=== PATIENT | female | born 1960 | race African-American/Black ===

== ENCOUNTER 2018-03-07 15:12 | Observation (INO) ==
[2018-03-07] MEDS ORDERED: tiZANidine 4 MG TABLET PO PRN (18:45)
[2018-03-07] MEDS ORDERED: Polyethylene Glycol 3350 255 GM POWDER PO ONE (18:48)
[2018-03-07] MEDS ORDERED: Ondansetron 4 MG/2 ML VIAL IVP PRN (18:49)
[2018-03-07] MEDS ORDERED: Naloxone 0.4 MG/ML INJ IVP PRN (18:50)
[2018-03-07] MEDS ORDERED: Acetaminophen 325 MG TABLET PO PRN (18:50)
--- NOTE | 2018-03-07 19:18 | Internal Med History&Physical ---
<MairaDarío - Last Filed: 03/07/18 20:03> Date of Encounter: 03/07/18 Time of Encounter: 18:00 Internal Medicine - H&P: HPI Chief complaint: Syncope w/Fall Admitted From: Intrahospital Transfer Plans for Post Hospital Care: Home History of present illness: Ms. Kim is a 58 year old female w/PMH of arthritis, HLD, HTN, osteoporosis, previous PA in 2010 with no stents, history of chronic bronchitis, and carpal tunnel of right wrist presents from [place] [facility] w/CC of fall today w/syncope. Pt. reports hitting her right cheek. Patient denies history of syncope. Patient reports history of chronic pain for which she has been taking OTC Aleve. No alleviating or aggravating factors for syncope. On admission, patient found to have creatinine of 2.39 and GFR of 25. Patient reports history of CK D but these are her lowest numbers. Patient also found to have positive fecal Hemoccult with Hgb of 10.5 a [place] and 10.0 on repeat at [facility] several hours later. She denies visible blood in stool or black stool. Patient denies recent illness, fever, chills, nausea, vomiting, changes in vision, headache, unusual bleeding, chest pain, shortness of breath, cough, chest congestion, abdominal pain, diarrhea, constipation, numbness, or tingling. Past Med Surg Social Fam HX - Past Medical History Source: patient, old records reviewed, obtained from family Medical history: arthritis, hyperlipidemia, hypertension, osteoporosis, other ( Chronic bronchitis, Carpal tunnel of the right wrist) Psychiatric history: anxiety, depression - Past Surgical History Additional surgical history: ECTOPIC,BILATERAL TUBAL LIGATION, LT SHOULDER SURG - Social History Smoking Status: Current every day smoker Packs per day: 1/2 PPD Smokeless Tobacco Status: No Alcohol use: none Drug use: none Current living situation: Home Activity Level: Independent ambulation Recent Out of Country Travel Within the Last 8 Weeks: No Exposure or Possible Exposure to Illness During Travel: No - Family History Father Family Member Ethnicity: Non- Living Status: Age at : 67 Cause of : PA Hx Family Cardiac Disorders: Yes (PA, CAD) Hx Family Endocrine Disorder: Yes (DM) Hx Family Psychosocial Disorders: Yes (Alcoholic) Mother Family Member Ethnicity: Non- Living Status: Age at : 81 Cause of : Colon cancer Hx Family Cardiac Disorders: Yes (PA, CAD) Hx Family Cancer: Yes (Colon) Brother Family Member Ethnicity: Non- Living Status: Age at : 67 Cause of : Lung cancer Hx Family Cancer: Yes (Lung) Sister Family Member Ethnicity: Non- Living Status: Still Living Hx Family Cardiac Disorders: Yes (PA, CAD, HTN, HLD) Hx Family Respiratory Disorders: Yes (COPD) Hx Family Cancer: Yes (Breast) Hx Family Genitourinary Disorders: Yes (CKD) Hx Family Endocrine Disorder: Yes (DM) Internal Medicine - H&P: Meds Gabapentin [Neurontin] 600 mg PO TID 12/25/15 [History] Alprazolam [Alprazolam Xr] 0.5 mg PO QID PRN 03/07/18 [History] Atorvastatin [Lipitor] 10 mg PO HS 03/07/18 [History] BuPROPion [Wellbutrin] 100 mg PO DAILY 03/07/18 [History] DULoxetine [Cymbalta] 20 mg PO DAILY 03/07/18 [History] Fenofibrate Nanocrystallized [Triglide] 160 mg PO DAILY 03/07/18 [History] Losartan Potassium [Cozaar] 50 mg PO DAILY 03/07/18 [History] Ranitidine HCl [Acid Injection Molding Engineer] 150 mg PO BID 03/07/18 [History] Tizanidine HCl [Zanaflex] 4 mg PO TID PRN 03/07/18 [History] Verapamil [Isoptin] 120 mg PO DAILY 03/07/18 [History] 3 Allergy/AdvReac Type Severity Reaction Status Date / Time MAYRA Inhibitors Allergy Cough Verified 12/05/16 09:17 ezetimibe [From Zetia] Allergy See Verified 12/05/16 09:17 Comments lamotrigine [From Lamictal] Allergy Rash Verified 12/05/16 09:17 lisinopril Allergy See Verified 12/05/16 09:17 Comments metoprolol Allergy Irritable Verified 12/05/16 09:17 pravastatin Allergy See Verified 12/05/16 09:17 Comments topiramate [From Topamax] Allergy See Verified 12/05/16 09:17 Comments All Systems PM: A 10-system review of systems was performed and is negative for pertinent findings except as documented above in the HPI. - Constitutional Constitutional: as per HPI, no chills, no fever(s), no night sweats - EENT Eyes: no change in vision, no discharge, no pain, no photophobia Ears: no ear discharge, no ear pain, no tinnitus Nose, mouth and throat: no dysphagia, no nasal discharge, no neck pain, no sore throat - Breasts Breasts: as per HPI - Cardiovascular Cardiovascular ROS IM: as per HPI, lightheadedness, syncope, no chest pain, no diaphoresis, no dyspnea, no palpitations - Respiratory Respiratory: as per HPI, no cough, no dyspnea, no wheezing, no excessive phlegm production - Gastrointestinal Gastrointestinal: as per HPI, no abdominal pain, no diarrhea, no hematemesis, no hematochezia, no melena, no nausea, no vomiting - Genitourinary Genitourinary: no change in urinary stream, no dysuria, no flank pain, no hematuria Menstruation: as per HPI - Musculoskeletal Musculoskeletal ROS IM: no numbness, no tingling - Integumentary Integumentary IM: no rash, no unusual bruising - Neurological Neurological ROS: as per HPI, dizziness, no confusion, no convulsions, no focal weakness, no numbness, no tingling, no tremor(s) - Psychiatric Psychiatric: as per HPI, anxiety, depression - Endocrine Endocrine IM: as per HPI - Hematologic/Lymphatic Hematologic/Lymphatic: no easy bruising - Allergic/Immunologic Allergic/Immunologic: as per HPI - Constitutional Vitals: Temp Pulse Resp BP Pulse Ox 98.2 F 58 17 116/79 96 03/07/18 17:05 03/07/18 17:05 03/07/18 17:05 03/07/18 17:05 03/07/18 17:05 General appearance: Present: cooperative, A&O X 3, pleasant, no acute distress, obese, answers questions appropriately - Head Head exam: Present: atraumatic, normocephalic - Eye Eye exam: Present: PERRL, conjuntiva pink, sclera anicteric Pupils: Present: PERRL - ENT ENT exam: Present: normal exam - Neck Neck exam general surgery: Present: normal inspection, supple, trachea midline. Absent: lymphadenopathy - Respiratory Respiratory exam: Present: CTAB. Absent: accessory muscle use, rales, rhonchi, wheezes - Cardiovascular Cardiovascular exam: Present: RRR, +S1, +S2. Absent: diastolic murmur, gallop, rubs, systolic murmur - GI/Abdominal GI/Abdominal exam: Present: normal bowel sounds, soft, no peritoneal signs. Absent: distended, tenderness - Rectal Rectal exam: Present: deferred - Additional comments: exam deferred. - Extremities Exam Extremities exam: Present: warm, radial pulses palpable and symmetrical. Absent : calf tenderness, cyanotic, pedal edema - Back Exam Back exam: Present: normal inspection - Neurological Exam Neurological exam: Present: alert, CN II-XII intact, oriented X3, no focal deficits. Absent: pronater drift, facial droop, speech deficit - Psychiatric Psychiatric exam: Present: normal affect, normal mood - Skin Skin exam: Present: dry, intact Internal Med - H&P Results - Labs CBC & Chem 7: 03/07/18 19:19 03/07/18 19:19 Labs: Short CBC 03/07/18 Range/Units 18:10 Hgb 10.0 L (11.5-15.4) g/dL Hct 31.9 L (35.3-44.9) % - Diagnostic Studies CT scan - abdomen Additional comments: EXAMINATION: CT OF THE ABDOMEN AND PELVIS WITHOUT CONTRAST 03/07/2018 2:07 pm TECHNIQUE: CT of the abdomen and pelvis was performed without the administration of intravenous contrast. Oral contrast was administered. Multiplanar reformatted images are provided for review. Dose modulation, iterative reconstruction, and/or weight based adjustment of the mA/kV was utilized to reduce the radiation dose to as low as reasonably achievable. COMPARISON: None. HISTORY: ORDERING SYSTEM PROVIDED HISTORY: abd pain FINDINGS: Lower Chest: Linear scarring/atelectasis within the lingula. No pleural effusion or pneumothorax. Heart is borderline prominent without pericardial fluid collection. Organs: The liver, pancreas, and spleen are grossly within normal limits. No evidence for intrahepatic or extrahepatic biliary ductal dilatation. Status post cholecystectomy. GI/Bowel: There is no evidence for bowel obstruction or inflammation. No free intraperitoneal air or fluid. Small bowel loops are normal in caliber. No evidence for hiatal hernia. Appendix is unremarkable. Pelvis: No evidence for free fluid. Peritoneum/Retroperitoneum: Adrenal glands are normal in size and configuration. The kidneys are normal in size without definite nephrolithiasis or hydronephrosis. The ureters run a nonobstructed course to a normal-appearing urinary bladder. Vasculature: The aorta is normal in caliber. No definite lymphadenopathy identified. Bones/Soft Tissues: No evidence for acute fracture or dislocation. No lytic or blastic lesions. Multilevel facet arthropathy within the lower lumbar spine and lumbosacral junction. CT/CT abd pelvis wo iv oral only IMPRESSION: No evidence for acute intra-abdominal or intrapelvic pathology. No bowel obstruction or inflammation. No evidence for nephrolithiasis or urinary obstruction. D/ / Dickson Lowe MD / Dickson Lowe MD Interpreting Provider: Dickson Lowe MD Chest x-ray Additional comments: EXAMINATION: SINGLE XRAY VIEW OF THE CHEST 03/07/2018 11:51 am COMPARISON: 09/06/2014 HISTORY: ORDERING SYSTEM PROVIDED HISTORY: syncope Initial encounter FINDINGS: No focal consolidation, pleural effusion or pneumothorax. The cardiomediastinal silhouette is stable. No overt pulmonary edema. The osseous structures are stable. XR/XR chest 1V portable IMPRESSION: Stable exam. No acute cardiopulmonary findings. D/ / Franca Huynh MD / Franca Huynh MD Interpreting Provider: Franca Huynh MD - Assessment and plan (1) Syncope and collapse Current Visit: Yes Status: Acute Assessment and plan: Acute syncope and collapse today, most likely from dehydration versus hypotension. Pt. reports hitting her right cheek in the fall. Denies hx of falls or syncope previously. CT of the head/brain ordered to assess for intracranial bleeding. Pt. shows no neuro deficits or changes. Pt. received 0.9 IV fluids at [place] ED and we will continue @ 80 mLs/HR d/t hypotension and current renal dysfunction. Monitor I&O and daily weight. Neuro assessments Q2HR. Falls/safety precautions and up with assist only. Will hold pts. HTN medications and add Hydralazine IVP 10 mg Q6HR PRN w/parameters if pt. becomes hypertensive. Pt. discussed w/Dr. Scott who agrees w/plan of care. Pt. is high risk for further morbidity d/t syncope, hypotension, dehydration requiring IV fluids, JAGRUTI, current GI bleed most likely from NSAIDS, hx, and risk factors. Observation. (2) GI bleed Current Visit: Yes Status: Acute Assessment and plan: Acute GI bleed. Pt reports hx of osteoporosis and states she has been taking OTC Aleve for all-over pain. Pt. denies hx of ulcers, GI bleeding, or previous colonoscopy. Positive fecal hemoccult. CT of the abdomen/pelvis shows no evidence for acute intra-abdominal or intrapelvic pathology. No bowel obstruction or inflammation. No evidence of nephrolithiasis or urinary obstruction. Hgb 10.5 this morning on admission at [facility] and 10.0 several hours later @ [facility]. IVP Protonix 40 mg BID. Clear liquid diet until midnight, then NPO. Monitor I&O and pt. for bleeding. Bilateral SCDs on LEs for DVT prophylaxis. GI consult ordered and discussed w/Dr. Coreas and I appreciate the consult and recommendations as always. H/H Q6HR. Qualifiers: GI bleed type/associated pathology: unspecified gastrointestinal hemorrhage type Qualified Code(s): K92.2 - Gastrointestinal hemorrhage, unspecified (3) JAGRUTI (acute kidney injury) Current Visit: Yes Status: Acute Assessment and plan: Acute on chronic kidney failure w/creatinine of 2.39 and GFR of 25 on admission. Pt. has hx of CKD but these are her worst numbers on record. JAGRUTI most likely d/t dehydration. Pt. reports not drinking very much over the past several days and had syncopal episode today. Pt. received IV fluids @ [place] [facility]. Repeat Chem ordered to assess for renal function improvement. Nephrology consult ordered and discussed w/Dr. Olivares who will see pt. I appreciate the consult and recommendations as always. Monitor I&O and daily weight. Avoid nephrotoxins. 0.9 NS IV fluids to continue @ 80 mLs/HR. Monitor pt. and f/u labs. (4) Hypotension Current Visit: Yes Status: Acute Assessment and plan: Acute hypotension today when pt. was at [facility]. Pt. reports Systolic BP in 50s. Was given IV fluids which improved BP. 116/79 @ 17:05. Will hold pts. BP medications d/t hypotension and add Hydralazine 10 mg Q6HR PRN w/ parameters if pt. becomes hypertensive. 0.9 NS IV fluids @ 80 mLs/HR for hypotension as well as for renal function improvement. VS Q4HR. Pt. to be monitored closely. Qualifiers: Hypotension type: hypotension due to hypovolemia Qualified Code(s): I95.89 - Other hypotension; E86.1 - Hypovolemia (5) HLD (hyperlipidemia) Current Visit: Yes Status: Chronic Assessment and plan: Hx of chronic HLD. Lipid panel in a.m. labs. Continue pts. PO Lipitor. Qualifiers: Hyperlipidemia type: pure hypercholesterolemia Qualified Code(s): E78.00 - Pure hypercholesterolemia, unspecified; E78.0 - Pure hypercholesterolemia (6) HTN (hypertension) Current Visit: Yes Status: Chronic Assessment and plan: Hx of chronic HTN. Pt. hypotensive today. Will hold pts. PO HTN medications and add IVP Hydralazine 10 mg Q6HR PRN w/parameters if pt. becomes hypertensive. Qualifiers: Hypertension type: essential hypertension Qualified Code(s): I10 - Essential (primary) hypertension (7) Previous myocardial infarction older than 8 weeks Current Visit: Yes Status: Resolved Assessment and plan: Hx of previous PA in 2010 w/o stent placement. Resolved. Continuous cardiac telemetry. (8) DVT prophylaxis Current Visit: Yes Status: Acute Assessment and plan: Bilateral SCDs on LEs for DVT prophylaxis d/t current GI bleeding. - Time Spent With Patient Total time spent is greater than 50% in coordination of care (as documented) at patient's floor/unit and/or counseling patient: Greater than 35 minutes <Anastacia Scott - Last Filed: 03/07/18 20:06> Date of Encounter: 03/07/18 Internal Medicine - H&P: HPI History of present illness: Ms. Kim is a 58 year old female All Systems PM: A 10-system review of systems was performed and is negative for pertinent findings except as documented above in the HPI. - Constitutional Vitals: Temp Pulse Resp BP Pulse Ox 98.2 F 58 17 116/79 96 03/07/18 17:05 03/07/18 17:05 03/07/18 17:05 03/07/18 17:05 03/07/18 19:06 Internal Med - H&P Results - Labs CBC & Chem 7: 03/07/18 19:19 03/07/18 19:19 Labs: Short CBC 03/07/18 03/07/18 Range/Units 18:10 19:19 WBC 9.2 (4.3-11.1) K/mcL Hgb TNP 10.4 L Hct TNP 31.1 L Plt Count 183 (140-400) K/mcL Neutrophils # 5.1 (1.6-8.9) K/mcL BMP 03/07/18 19:19 Sodium 141 Potassium 4.1 Chloride 111 H Carbon Dioxide 26 BUN 28 H Creatinine 2.08 H Glucose 96 Calcium 8.6 Liver Function 03/07/18 Range/Units 19:19 Total Bilirubin 0.4 (0.3-1.0) mg/dL AST 12 L (13-39) Units/L ALT 11 (7-52) Units/L Alkaline Phosphatase 29 L (34-104) Units/L Albumin 3.5 (3.5-5.7) g/dL - Attending Attestation I have seen and examined pt independently. I have discussed with FARM TRACTOR OPERATOR Mr Rao regarding the management plan. Agree with the documentation. - Assessment and plan (1) Hypotension Current Visit: Yes Status: Acute Qualifiers: Hypotension type: hypotension due to hypovolemia Qualified Code(s): I95.89 - Other hypotension; E86.1 - Hypovolemia (2) Syncope and collapse Current Visit: Yes Status: Acute (3) GI bleed Current Visit: Yes Status: Acute Qualifiers: GI bleed type/associated pathology: unspecified gastrointestinal hemorrhage type Qualified Code(s): K92.2 - Gastrointestinal hemorrhage, unspecified (4) JAGRUTI (acute kidney injury) Current Visit: Yes Status: Acute (5) HLD (hyperlipidemia) Current Visit: Yes Status: Chronic Qualifiers: Hyperlipidemia type: pure hypercholesterolemia Qualified Code(s): E78.00 - Pure hypercholesterolemia, unspecified; E78.0 - Pure hypercholesterolemia (6) HTN (hypertension) Current Visit: Yes Status: Chronic Qualifiers: Hypertension type: essential hypertension Qualified Code(s): I10 - Essential (primary) hypertension (7) Previous myocardial infarction older than 8 weeks Current Visit: Yes Status: Resolved (8) DVT prophylaxis Current Visit: Yes Status: Acute - Time Spent With Patient Total time spent is greater than 50% in coordination of care (as documented) at patient's floor/unit and/or counseling patient:
[2018-03-07 19:30] LABS: Basophils % 0.2 %; Eosinophils # 0.2 K/mcL (0.0-0.6); Eosinophils % 2.3 %; Hematocrit 31.1 % (35.3-44.9); Immature Granulocytes % 0.3 % (0-4); Lymphocytes # 3.4 K/mcL (0.6-4.6); Lymphocytes % 36.8 %; Mean Corpuscular HGB Conc 33.4 g/dL (31.6-35.5); Mean Corpuscular Hemoglobin 33.2 pg (28.0-33.3); Mean Corpuscular Volume 99.4 fL (83.0-100.0); Monocytes # 0.4 K/mcL (0.0-1.3); Monocytes % 4.8 %; Neutrophils # 5.1 K/mcL (1.6-8.9); Platelet Count 183 K/mcL (140-400); Red Blood Count 3.13 M/mcL (3.82-4.97); Red Cell Distribution Width 12.3 % (11.5-14.5); Segmented Neutrophils % 55.6 %
[2018-03-07] MEDS ORDERED: SODIUM CHLORIDE/NAHCO3/KCL/PEG 4,000 ML SOLN.RECON PO ONE (19:35)
[2018-03-07 19:47] LABS: Calcium 8.6 mg/dL (8.6-10.3); Potassium 4.1 mEq/L (3.5-5.1)
[2018-03-07 20:01] LABS: Hemoglobin 10.4 g/dL (11.5-15.4)
[2018-03-07 20:02] LABS: Albumin 3.5 g/dL (3.5-5.7); Albumin/Globulin Ratio 1.8 (1.1-2.2); Bilirubin,Total 0.4 mg/dL (0.3-1.0); Total Protein 5.5 g/dL (6.4-8.9)
[2018-03-07] MEDS: 0.9 % Sodium Chloride 1,000 ML IVC SCH (20:13)
[2018-03-07] MEDS: Nicotine 14 MG PATCH.TD24 TD SCH (20:14)
[2018-03-07] MEDS ORDERED: Gabapentin 300 MG CAPSULE PO SCH (21:00)
[2018-03-08 00:33] LABS: Basophils % 0.2 %; Eosinophils # 0.2 K/mcL (0.0-0.6); Eosinophils % 2.6 %; Hematocrit 32.9 % (35.3-44.9); Hemoglobin 10.9 g/dL (11.5-15.4); Immature Granulocytes % 0.3 % (0-4); Lymphocytes # 3.2 K/mcL (0.6-4.6); Lymphocytes % 35.4 %; Mean Corpuscular HGB Conc 33.1 g/dL (31.6-35.5); Mean Corpuscular Volume 99.7 fL (83.0-100.0); Monocytes # 0.4 K/mcL (0.0-1.3); Monocytes % 4.6 %; Neutrophils # 5.1 K/mcL (1.6-8.9); Platelet Count 190 K/mcL (140-400); Red Cell Distribution Width 12.3 % (11.5-14.5); Segmented Neutrophils % 56.9 %
[2018-03-08 00:50] LABS: Albumin 3.8 g/dL (3.5-5.7); Albumin/Globulin Ratio 1.9 (1.1-2.2); Bilirubin,Total 0.4 mg/dL (0.3-1.0); Calcium 8.7 mg/dL (8.6-10.3); Magnesium 2.1 mg/dL (1.6-2.6); Potassium 3.9 mEq/L (3.5-5.1); Total Protein 5.8 g/dL (6.4-8.9)
[2018-03-08] MEDS: *HR* Promethazine 25 MG/ML VIAL IVP PRN ×2 (03:16→17:05)
[2018-03-08] MEDS: Pantoprazole 40 MG VIAL IVP SCH ×2 (05:46→17:05)
[2018-03-08 06:15] LABS: Hematocrit 33.5 % (35.3-44.9); Hemoglobin 11.1 g/dL (11.5-15.4)
[2018-03-08] MEDS ORDERED: Simethicone 40 MG/0.6 ML MLS IR ONE (07:33)
[2018-03-08] MEDS ORDERED: Tetracaine/Benzocaine/Butamben 200MG/SPRAY (100SPY/BOT) MM ONE (07:33)
[2018-03-08] MEDS ORDERED: *HR* Midazolam HCl 5 MG/5 ML VIAL IVP ONE ×2 (07:33→07:34)
--- NOTE | 2018-03-08 07:33 | Pre-Sedation Evaluation ---
Pre-sedation evaluation - Pre-sedation checklist Date of procedure: 03/08/18 Recent Vitals: Last Vital Signs Temp 97.7 F 03/08/18 03:55 Pulse 73 03/08/18 03:55 Resp 15 03/08/18 03:55 BP 115/69 03/08/18 03:55 Pulse Ox 98 03/08/18 03:55 ASA Classification *see protocol: CLASS II-Mild systemic disease Plan of Care: Pt appropriate candidate for procedure/moderate/conscious sedation , Risks/benefits of procedure/sedation discussed w/ patient/family Cardiac Registry (Cardio Only) - Functional Capacity - Clincal Frailty Scale
[2018-03-08] MEDS ORDERED: *HR* FentaNYL (PF) 100 MCG/2 ML VIAL ONE (07:34)
[2018-03-08] MEDS: *HR* FentaNYL (PF) 100 MCG/2 ML VIAL IVP ONE ×2 (07:38→07:44)
--- NOTE | 2018-03-08 08:26 | Electrocardiograph Report ---
[address] [place], [place] [address] Test Date: 2018-03-07 Pat Name: Cassidy Kim Department: 111 Room: 2A33 Gender: Chemist Biological: : 1960 Requested By: Anastacia Scott Order Number: [id number] Reading MD: Jorgito Pittman Measurements Intervals [place] Rate: 56 P: 58 [place]: 151 QRS: 14 QRSD: 97 T: 19 QT: 416 QTc: 406 Interpretive Statements SINUS BRADYCARDIA LOW QRS VOLTAGE IN PRECORDIAL LEADS Electronically Signed On 03-08-2018 8:25:24 EDT by Jorgito Pittman
[2018-03-08 08:34] LABS: Estimated Average Glucose 126 mg/dl
[2018-03-08] MEDS: Fenofibrate 54 MG TABLET PO SCH (09:13)
[2018-03-08] MEDS: Famotidine 20 MG TABLET PO SCH (09:13)
[2018-03-08] MEDS: Gabapentin 300 MG CAPSULE PO SCH ×3 (09:13→21:38)
--- NOTE | 2018-03-08 10:27 | Internal Med Progress Note ---
Date of Encounter: 03/08/18 Time of Encounter: 08:10 - Assessment and plan (1) Syncope and collapse Current Visit: Yes Status: Acute Assessment and plan: Acute syncopal episode - possibly due to hypotension, JAGRUTI, dehydration and medication use (Neurontin) Continue IV, supportive care, monitor closely Patient now at baseline state. She is awake and alert and oriented 3. CT brain - no acute intracranial abnormality EKG - sinus bradycardia Repeat labs in a.m., monitor closely Consult PT/OT. Anticipate discharge home with home health services in 24 hours (2) JAGRUTI (acute kidney injury) Current Visit: Yes Status: Acute Assessment and plan: JAGRUTI on probable CKD stage III - likely due to dehydration Continue IV fluids, avoid nephrotoxic agents, renally adjust meds Repeat labs in a.m., monitor closely (3) GI bleed Current Visit: Yes Status: Acute Assessment and plan: No active bleeding at this time. Fecal Hemoccult is positive. GI consult - EGD/colonoscopy done, reports pending H&H currently stable, monitor closely Qualifiers: GI bleed type/associated pathology: unspecified gastrointestinal hemorrhage type Qualified Code(s): K92.2 - Gastrointestinal hemorrhage, unspecified (4) CAD (coronary artery disease) Current Visit: Yes Status: Chronic Assessment and plan: Coronary artery disease, stable, no anginal symptoms Continue home dose of Lipitor Qualifiers: Coronary Disease-Associated Artery/Lesion type: hughes artery [place] vs. transplanted heart: hughes heart Associated angina: without angina Qualified Code(s): I25.10 - Atherosclerotic heart disease of hughes coronary artery without angina pectoris (5) HLD (hyperlipidemia) Current Visit: Yes Status: Chronic Assessment and plan: Continue home dose of Lipitor, TriCor Qualifiers: Hyperlipidemia type: pure hypercholesterolemia Qualified Code(s): E78.00 - Pure hypercholesterolemia, unspecified; E78.0 - Pure hypercholesterolemia (6) HTN (hypertension) Current Visit: Yes Status: Chronic Assessment and plan: Essential hypertension, controlled, monitor closely Hold Cozaar due to JAGRUTI Qualifiers: Hypertension type: essential hypertension Qualified Code(s): I10 - Essential (primary) hypertension (7) Chronic pain Current Visit: Yes Status: Chronic Assessment and plan: Chronic pain - including chronic back pain Patient is on Cymbalta, Neurontin, Zanaflex at home Qualifiers: Chronic pain type: other chronic postprocedural pain Qualified Code(s): G89.28 - Other chronic postprocedural pain (8) Depression with anxiety Current Visit: Yes Status: Chronic Assessment and plan: Chronic depression with anxiety, stable Continue home dose of Xanax, Wellbutrin (9) DVT prophylaxis Current Visit: Yes Status: Acute Assessment and plan: Continue SCDs. Avoid anticoagulants due to GI bleed. - Time Spent With Patient 25 - 35 minutes - Subjective Interval history: Examined this morning. Patient is awake and alert. Not in any distress. Laying comfortably in bed. Denies chest pain or shortness of breath. Complains of mild generalized weakness. Denies abdominal pain or vomiting. Blood pressure is low, but stable. No fever. Patient thinks she may have taken more doses of Neurontin which caused her to pass out. Admitted for syncope and GI bleed. Patient is undergone EGD/colonoscopy this morning. Patient also has JAGRUTI. Continue IV fluids. Hold antihypertensives until blood pressure has improved some more. Monitor closely. Anticipate discharge home with home health services in 24 hours. - Constitutional Vitals: Temp Pulse Resp BP Pulse Ox 97.8 F 65 16 102/64 98 03/08/18 09:12 03/08/18 10:03 03/08/18 10:03 03/08/18 10:03 03/08/18 10:03 General appearance: Present: cooperative, A&O X 3, pleasant, no acute distress, obese, answers questions appropriately - Head Head exam: Present: atraumatic - Eye Eye exam: Present: EOMI - ENT ENT exam: Present: mucous membranes dry - Neck Neck exam general surgery: Present: supple - Respiratory Respiratory exam: Present: decreased breath sounds (Likely decreased breath sounds in both bases, otherwise clear to auscultation) - Cardiovascular Cardiovascular exam: Present: RRR, +S1, +S2 - GI/Abdominal GI/Abdominal exam: Present: normal bowel sounds, soft, no peritoneal signs. Absent: firm, guarding, rebound, tenderness - Extremities Exam Extremities exam: Absent: calf tenderness, tenderness - Neurological Exam Neurological exam: Present: alert, oriented X3, no focal deficits. Absent: facial droop, speech deficit Internal Medicine: Result - Labs CBC & Chem 7: 03/08/18 05:49 03/08/18 00:14 Labs: Short CBC 03/07/18 03/07/1803/08/18 Range/Units 18:10 19:19 00:14 WBC 9.2 8.9 (4.3-11.1) K/mcL Hgb TNP 10.4 L 10.9 L Hct TNP 31.1 L 32.9 L Plt Count 183 190 (140-400) K/mcL Neutrophils # 5.1 5.1 (1.6-8.9) K/mcL 03/08/18 Range/Units 05:49 WBC (4.3-11.1) K/mcL Hgb 11.1 L Hct 33.5 L Plt Count (140-400) K/mcL Neutrophils # (1.6-8.9) K/mcL BMP 03/07/18 03/08/18 19:19 00:14 Sodium 141 139 Potassium 4.1 3.9 Chloride 111 H 110 H Carbon Dioxide 26 23 BUN 28 H 25 H Creatinine 2.08 H 1.90 H Glucose 96 125 H Calcium 8.6 8.7 Liver Function 03/07/18 03/08/18 Range/Units 19:19 00:14 Total Bilirubin 0.4 0.4 (0.3-1.0) mg/dL AST 12 L 13 (13-39) Units/L ALT 11 11 (7-52) Units/L Alkaline Phosphatase 29 L 30 L (34-104) Units/L Albumin 3.5 3.8 (3.5-5.7) g/dL - Impressions Impressions Head CT 03/07/18 18:44 IMPRESSION: No acute intracranial abnormality. D/ / Alberto Torrez / Alberto Torrez Interpreting Provider: Alberto Torrez - VTE Documentation of Mechanical Device: Intermittent pneumatic compression device Consult Discharge Plan - Plan Referrals: Judy Gill, PUZZLE ASSEMBLER [Primary Care Provider] -
--- NOTE | 2018-03-08 10:52 | Gastroenterology Consult Note ---
<Jeffrey Hanson Cindy - Last Filed: 03/08/18 10:48> Date of Encounter: 03/08/18 Time of Encounter: 09:55 - Assessment and plan (1) GI bleed Current Visit: Yes Status: Acute Assessment and plan: Hgb 10.5 at [place] and fecal occult blood test was positive, Hgb on admission was 10.4 and is 10.9 today. Plan for EGD and colonoscopy today to evaluate for bleeding. Follow up in GI office in 3 weeks. Qualifiers: GI bleed type/associated pathology: unspecified gastrointestinal hemorrhage type Qualified Code(s): K92.2 - Gastrointestinal hemorrhage, unspecified - Time Spent With Patient Total time spent is greater than 50% in coordination of care (as documented) at patient's floor/unit and/or counseling patient: GI History of Present Illness - Data of Consult Patient: new to practice Consult date: 03/08/18 Requesting Physician: Anastacia Scott MD - Consult Narrative Reason for consult: Positive FOBT History of present illness: Ms. Kim is a 58 year old female with PMHx of arthritis, HLD, HTN, previous HI in 2010 with no stents presented to [place] ED after a fall with syncope. She reports history of chronic pain and has been taking Aleve. Patient found to have Hgb 10.5 at [place] and fecal occult blood test was positive. She was transferred here, and Hgb on admission was 10.4. She denies fever, chills, chest pain, shortness of breath, abdominal pain, nausea, vomiting, melena, hematochezia. We were consulted to evaluate her anemia and positive fecal occult blood test. CT A/P with no evidence for acute intra-abdominal or intrapelvic pathology. Procedures: None NSAIDs: Aleve Anticoagulation: None Past Med Surg Social Fam HX - Past Medical History Medical history: arthritis, hyperlipidemia, hypertension, osteoporosis, other ( Chronic bronchitis, Carpal tunnel of the right wrist) Psychiatric history: anxiety, depression - Past Surgical History Additional surgical history: ECTOPIC,BILATERAL TUBAL LIGATION, LT SHOULDER SURG - Social History Smoking Status: Current every day smoker Packs per day: 1/2 PPD Smokeless Tobacco Status: No Alcohol use: none Drug use: none - Family History Father Family Member Ethnicity: Non- Living Status: Age at : 67 Cause of : HI Hx Family Cardiac Disorders: Yes (HI, CAD) Hx Family Endocrine Disorder: Yes (DM) Hx Family Psychosocial Disorders: Yes (Alcoholic) Mother Family Member Ethnicity: Non- Living Status: Age at : 81 Cause of : Colon cancer Hx Family Cardiac Disorders: Yes (HI, CAD) Hx Family Cancer: Yes (Colon) Brother Family Member Ethnicity: Non- Living Status: Age at : 67 Cause of : Lung cancer Hx Family Cancer: Yes (Lung) Sister Family Member Ethnicity: Non- Living Status: Still Living Hx Family Cardiac Disorders: Yes (HI, CAD, HTN, HLD) Hx Family Respiratory Disorders: Yes (COPD) Hx Family Cancer: Yes (Breast) Hx Family Genitourinary Disorders: Yes (CKD) Hx Family Endocrine Disorder: Yes (DM) - Gastrointestinal Gastrointestinal: Present: as per HPI - Constitutional Constitutional: as per HPI - EENT Eyes: as per HPI Ears: Present: as per HPI Nose, mouth and throat: Present: as per HPI - Cardiovascular Cardiovascular ROS: Present: as per HPI - Respiratory Respiratory IM: Present: as per HPI - Genitourinary Genitourinary: Absent: change in color, Urinary frequency - Neurological ROS Neurological GI: Present: as per HPI - Hematologic/Lymphatic Hematologic/Lymphatic pediatric: Present: as per HPI - Musculoskeletal Musculoskeletal ROS GI: Present: as per HPI - Integumentary Integumentary GI: Present: as per HPI - Psychiatric ROS Psychiatric GI: Present: as per HPI - Endocrine Endocrine IM: Present: as per HPI - Constitutional Vitals: Temp Pulse Resp BP Pulse Ox 97.8 F 65 16 102/64 98 03/08/18 09:12 03/08/18 10:03 03/08/18 10:03 03/08/18 10:03 03/08/18 10:03 General appearance: Present: cooperative, A&O X 3, no acute distress, answers questions appropriately - Head Head exam: Present: atraumatic, normocephalic - Eye Eye exam: Present: normal appearance, sclera anicteric - ENT ENT exam: Present: mucous membranes dry - Neck Neck exam general surgery: Present: normal inspection, trachea midline - Respiratory Respiratory exam: Present: decreased breath sounds, CTAB. Absent: rales, rhonchi - Cardiovascular Cardiovascular exam: Present: RRR, +S1, +S2 - GI/Abdominal GI/Abdominal exam: Present: soft, no peritoneal signs. Absent: distended, firm , guarding, tenderness - Rectal Rectal exam: Present: deferred - Extremities Exam Extremities exam: Present: warm - Neurological Exam Neurological exam: Present: no focal deficits - Psychiatric Psychiatric exam: Present: normal affect, normal mood - Skin Skin exam: Present: dry, intact, normal color, warm Results - Labs CBC & Chem 7: 03/08/18 05:49 03/08/18 00:14 Labs: Last Result Calcium 8.7 mg/dL (8.6-10.3) 03/08/18 00:14 Triglycerides 111 mg/dL (< 150) 03/08/18 00:14 Entire Visit Hgb 11.1 g/dL (11.5-15.4) L 03/08/18 05:49 Hct 33.5 % (35.3-44.9) L 03/08/18 05:49 Total Bilirubin 0.4 mg/dL (0.3-1.0) 03/08/18 00:14 AST 13 Units/L (13-39) 03/08/18 00:14 ALT 11 Units/L (7-52) 03/08/18 00:14 - Impressions Impressions Head CT 03/07/18 18:44 IMPRESSION: No acute intracranial abnormality. D/ / Alberto Torrez / Alberto Torrez Interpreting Provider: Alberto Torrez Consult Discharge Plan - Plan Referrals: Judy Gill CNP [Primary Care Provider] - <Veronica Coreas - Last Filed: 03/08/18 14:46> Date of Encounter: 03/08/18 Time of Encounter: 08:00 - Time Spent With Patient Total time spent is greater than 50% in coordination of care (as documented) at patient's floor/unit and/or counseling patient: GI History of Present Illness - Data of Consult Requesting Physician: Anastacia Scott MD - Consult Narrative History of present illness: Ms. Kim is a 58 year old female - Constitutional Vitals: Temp Pulse Resp BP Pulse Ox 98.7 F 71 18 107/80 100 03/08/18 10:40 03/08/18 10:40 03/08/18 10:40 03/08/18 10:40 03/08/18 10:40 Results - Labs CBC & Chem 7: 03/08/18 05:49 03/08/18 00:14 Labs: Last Result Calcium 8.7 mg/dL (8.6-10.3) 03/08/18 00:14 Triglycerides 111 mg/dL (< 150) 03/08/18 00:14 Entire Visit Hgb 11.1 g/dL (11.5-15.4) L 03/08/18 05:49 Hct 33.5 % (35.3-44.9) L 03/08/18 05:49 Total Bilirubin 0.4 mg/dL (0.3-1.0) 03/08/18 00:14 AST 13 Units/L (13-39) 03/08/18 00:14 ALT 11 Units/L (7-52) 03/08/18 00:14 - Impressions Impressions Head CT 03/07/18 18:44 IMPRESSION: No acute intracranial abnormality. D/ / Alberto Torrez / Alberto Torrez Interpreting Provider: Alberto Torrez - Attending Attestation I have personally performed a face to face evaluation on this patient. I have reviewed and agree with the care plan. History and Exam by me shows: Pt seen . No abd pain. Pt admitted with syncope and anemia. P/E: Abd soft, no tanderness A; Anemia r/o GI blood loss cause R: EGD/colon
[2018-03-08] MEDS: 0.9 % Sodium Chloride 1,000 ML IVC SCH ×2 (12:16→23:59)
--- NOTE | 2018-03-08 15:39 | Nephrology Consult Note ---
Date of Encounter: 03/08/18 Time of Encounter: 12:00 Assessment and Plan (1) JAGRUTI (acute kidney injury) Current Visit: Yes Status: Acute Elevated SCr in the setting of a syncopal episode likely [id number] and responding to fluids Agree with continued IVF Agree with holding losartan No acute indication for MANAGER MSW at this time Continue to avoid nephrotoxins if possible Will check urine sodium and eosinophils (2) Syncope and collapse Current Visit: Yes Status: Acute per primary team (3) GI bleed Current Visit: Yes Status: Acute Hgb stable at 10.9. GI workup per primary team Qualifiers: GI bleed type/associated pathology: unspecified gastrointestinal hemorrhage type Qualified Code(s): K92.2 - Gastrointestinal hemorrhage, unspecified (4) CKD (chronic kidney disease) stage 3, GFR 30-59 ml/min Current Visit: Yes Status: Acute Baseline GFR in the 30-40s, will initiate CKD wokrup as well Will obtain US of kidney Will check SPEP and UPEP Will check SAMUEL and complements Will check urine for proteinuria History of Present Illness - Reason for Consult Consult date: 03/08/18 Acute Kidney Injury, Chronic Kidney Disease Requesting physician: Darío Rao - History of Present Illness 58 y o female with PMH of HTN, MS ,OA and high chol admitted s/p syncope event. Renal consulted for elevated SCr at 2.39 on presentation but improving to 1.9 with IVF overnight. Pt reports being aware of renal dysfxn but denies any nephrology evaluation in the past. She denies any family history of renal disease. she reports occasional urinary hesitance but no kidney stones. She also uses NSAIDs on weekly basis. she denies any N/V/D but reports dizziness for sometime prior to syncope Past Med Surg Social Fam HX - Past Medical History Medical history: arthritis, hyperlipidemia, hypertension, osteoporosis, other ( Chronic bronchitis, Carpal tunnel of the right wrist) Psychiatric history: anxiety, depression - Past Surgical History Additional surgical history: ECTOPIC,BILATERAL TUBAL LIGATION, LT SHOULDER SURG - Social History Smoking Status: Current every day smoker Packs per day: 1/2 PPD Smokeless Tobacco Status: No Alcohol use: none Drug use: none - Family History Father Family Member Ethnicity: Non- Living Status: Age at : 67 Cause of : MS Hx Family Cardiac Disorders: Yes (MS, CAD) Hx Family Endocrine Disorder: Yes (DM) Hx Family Psychosocial Disorders: Yes (Alcoholic) Mother Family Member Ethnicity: Non- Living Status: Age at : 81 Cause of : Colon cancer Hx Family Cardiac Disorders: Yes (MS, CAD) Hx Family Cancer: Yes (Colon) Brother Family Member Ethnicity: Non- Living Status: Age at : 67 Cause of : Lung cancer Hx Family Cancer: Yes (Lung) Sister Family Member Ethnicity: Non- Living Status: Still Living Hx Family Cardiac Disorders: Yes (MS, CAD, HTN, HLD) Hx Family Respiratory Disorders: Yes (COPD) Hx Family Cancer: Yes (Breast) Hx Family Genitourinary Disorders: Yes (CKD) Hx Family Endocrine Disorder: Yes (DM) Medications and Allergies Gabapentin [Neurontin] 600 mg PO TID 12/25/15 [History] Alprazolam [Alprazolam Xr] 0.5 mg PO QID PRN 03/07/18 [History] Atorvastatin [Lipitor] 10 mg PO HS 03/07/18 [History] BuPROPion [Wellbutrin] 100 mg PO DAILY 03/07/18 [History] DULoxetine [Cymbalta] 20 mg PO DAILY 03/07/18 [History] Fenofibrate Nanocrystallized [Triglide] 160 mg PO DAILY 03/07/18 [History] Losartan Potassium [Cozaar] 50 mg PO DAILY 03/07/18 [History] Ranitidine HCl [Acid Construction Craft Laborer] 150 mg PO BID 03/07/18 [History] Tizanidine HCl [Zanaflex] 4 mg PO TID PRN 03/07/18 [History] Verapamil [Isoptin] 120 mg PO DAILY 03/07/18 [History] 3 Allergy/AdvReac Type Severity Reaction Status Date / Time MAYRA Inhibitors Allergy Cough Verified 12/05/16 09:17 ezetimibe [From Zetia] Allergy See Verified 12/05/16 09:17 Comments lamotrigine [From Lamictal] Allergy Rash Verified 12/05/16 09:17 lisinopril Allergy See Verified 12/05/16 09:17 Comments metoprolol Allergy Irritable Verified 12/05/16 09:17 pravastatin Allergy See Verified 12/05/16 09:17 Comments topiramate [From Topamax] Allergy See Verified 12/05/16 09:17 Comments Review of Systems All Systems: reviewed and no additional remarkable complaints except as stated ( 10 systems reviewed and noted in HPI) Exam - Vital Signs Vital signs: Initial Vital Signs Temp Pulse Resp BP Pulse Ox 98.2 F 58 17 116/79 96 03/07/18 17:05 03/07/18 17:05 03/07/18 17:05 03/07/18 17:05 03/07/18 17:05 Vital Signs - Last 8 Hours Temp Pulse Resp BP Pulse Ox 03/08/18 10:40 98.7 F 71 18 107/80 100 03/08/18 10:10 66 130/81 99 03/08/18 10:03 65 16 102/64 98 03/08/18 09:40 64 16 113/73 97 03/08/18 09:25 67 16 100/53 99 03/08/18 09:12 97.8 F 68 16 126/76 96 03/08/18 08:28 85 16 130/80 97 03/08/18 08:23 83 14 128/72 96 03/08/18 08:18 85 18 130/57 95 03/08/18 08:13 94 18 138/76 94 03/08/18 08:08 97 16 156/68 94 03/08/18 08:03 95 14 187/96 95 03/08/18 07:58 97 16 192/104 95 03/08/18 07:53 91 18 179/117 95 03/08/18 07:48 89 16 170/100 93 03/08/18 07:43 73 14 147/89 95 03/08/18 07:38 71 16 137/75 97 03/08/18 07:37 98.7 F 69 18 129/71 96 Intake and Output 03/07/18 03/08/18 03/08/18 23:59 07:59 15:59 Intake Total 1200 / 1200 1000 / 1000 Output Total 1200 / 1200 Balance 1200 / 1200 -1200 / -1200 1000 / 1000 Intake: IV Fluids 1000 / 1000 0.9 % Sodium Chloride 1,000 ML 1000 / 1000 @ 80 mls/hr IVC .[id number] MICK Rx #:[id number] Oral 1200 / 1200 Output: Urine 1200 / 1200 Other: Stool Size Copious Stool Consistency liquid Stool Color Green # Voids 1 1 Weight 86.092 kg - General Appearance General appearance: well-developed, well-nourished EENT: ATNC (mild bruises by her nose noted from her fall), mucous membranes moist Neck: no JVD, supple Respiratory: clear Cardiology: no edema, normal S1, normal S2 Gastrointestinal: no tenderness, no guarding Integumentary: warm and dry Neurologic: no focal deficit Musculoskeletal: no deformities Psychiatric: mood/affect appropriate, cooperative Results - Lab Results 03/08/18 05:49 03/08/18 00:14 Most recent lab results Calcium 8.7 mg/dL (8.6-10.3) 03/08/18 00:14 Magnesium 2.1 mg/dL (1.6-2.6) 03/08/18 00:14 Consult Discharge Plan - Plan Referrals: Judy Gill CNP [Primary Care Provider] -
[2018-03-08] MEDS: ALPRAZolam 0.5 MG TABLET PO PRN ×2 (15:53→21:38)
[2018-03-08] MEDS: Nicotine 14 MG PATCH.TD24 TD SCH (18:08)
[2018-03-08 21:24] LABS: Bilirubin,Urine Negative (Negative); Blood,Urine Negative (Negative); Clarity,Urine Clear (Clear); Color,Urine Yellow (Yellow); Glucose,Urine (UA) Normal (Normal); Ketones,Urine Negative (Negative); Leukocyte Esterase,Urine Negative (Negative); Nitrite,Urine Negative (Negative); PH,Urine 7.5 pH Units (5.0-8.0); Protein,Urine Negative (Neg-Trace); Specific Gravity,Urine < 1.005 (1.010-1.025); Urobilinogen,Urine Normal (Normal)
[2018-03-08 21:55] LABS: Creatinine,Urine 38 mg/dL; Microalbumin,Urine < 7 mg/L; Sodium, Urine 89.3 mEq/L
[2018-03-09] MEDS: Pantoprazole 40 MG VIAL IVP SCH (05:30)
[2018-03-09 06:36] LABS: Basophils % 0.2 %; Eosinophils # 0.2 K/mcL (0.0-0.6); Eosinophils % 2.4 %; Hematocrit 28.3 % (35.3-44.9); Immature Granulocytes % 0.3 % (0-4); Lymphocytes # 2.9 K/mcL (0.6-4.6); Lymphocytes % 29.6 %; Mean Corpuscular HGB Conc 33.2 g/dL (31.6-35.5); Mean Corpuscular Hemoglobin 32.9 pg (28.0-33.3); Mean Platelet Volume 10.9 fL (9.4-12.4); Monocytes # 0.5 K/mcL (0.0-1.3); Monocytes % 5.3 %; Platelet Count 176 K/mcL (140-400); Red Blood Count 2.86 M/mcL (3.82-4.97); Red Cell Distribution Width 12.3 % (11.5-14.5); Segmented Neutrophils % 62.2 %
[2018-03-09 06:41] LABS: Hemoglobin 9.4 g/dL (11.5-15.4)
[2018-03-09 07:01] LABS: Albumin 3.3 g/dL (3.5-5.7); Albumin/Globulin Ratio 1.7 (1.1-2.2); Bilirubin,Total 0.4 mg/dL (0.3-1.0); Calcium 8.4 mg/dL (8.6-10.3); Potassium 3.9 mEq/L (3.5-5.1); Total Protein 5.3 g/dL (6.4-8.9)
[2018-03-09 07:08] VITALS: BP 135/64
[2018-03-09] MEDS: Fenofibrate 54 MG TABLET PO SCH (09:00)
[2018-03-09] MEDS: Famotidine 20 MG TABLET PO SCH (09:01)
[2018-03-09] MEDS: Gabapentin 300 MG CAPSULE PO SCH (09:01)
[2018-03-09] MEDS: ALPRAZolam 0.5 MG TABLET PO PRN (09:07)
--- NOTE | 2018-03-09 10:39 | Discharge Summary ---
Orders not resulted at time of discharge: Pending orders 03/07/18 18:54 Culture,Urine [RM] Stat 03/08/18 07:47 Surgical Pathology [PTH] Routine 03/08/18 08:28 Surgical Pathology [PTH] Routine 03/08/18 19:40 Immunofixation,Urine (BJP) Routine 03/09/18 06:25 SAMUEL IgG ANDREZ rflx IFA AM 0400 Complement Component 3 Routine Complement Component 4 Routine Immunoelectrophoresis AM 0400 03/09/18 07:20 Occult Blood,Stool [BF] Routine 03/10/18 04:00 Complete Blood Count [HEME] AM 0400 Comprehensive Metabolic Panel AM 0400 03/11/18 04:00 Complete Blood Count [HEME] AM 0400 Comprehensive Metabolic Panel AM 0400 Date of Encounter: 03/09/18 Time of Encounter: 08:30 - Discharge Diagnosis (1) Syncope and collapse Priority: Primary Status: Acute Comments: Acute syncopal episode - likely due to medication use (Neurontin, Xanax), hypotension, JAGRUTI, dehydration - symptoms now resolved Patient now at baseline state. She is awake and alert and oriented 3. Tolerating oral diet. Ambulating well. CT brain - no acute intracranial abnormality EKG - sinus bradycardia Colonoscopy - diverticulosis of sigmoid, polyps x2 s/p resection Advised to cut down on Xanax use. Avoid combination of Neurontin and Xanax. Stop Zanaflex. Patient refuses home health services, and refuses short-term SNF placement. Stable for discharge home today. Return if symptoms worsen. Follow-up with primary care physician, nephrology and GI (2) GI bleed Priority: Primary Status: Acute Comments: Positive fecal Hemoccult - H&H is stable, no active bleeding Probable chronic GI bleed - likely due to diverticulosis and polyp GI has evaluated patient Colonoscopy - 1 non-bleeding polyp in rectum s/p resection, diverticulosis of sigmoid, 1 non-bleeding polyp in ascending colon s/p resection Repeat colonoscopy in 3 years Follow up with GI as outpatient Qualifiers: GI bleed type/associated pathology: unspecified gastrointestinal hemorrhage type Qualified Code(s): K92.2 - Gastrointestinal hemorrhage, unspecified (3) JAGRUTI (acute kidney injury) Priority: Primary Status: Acute Comments: JAGRUTI on probable CKD stage III - now improved, likely at baseline Avoid nephrotoxic agents, renally adjust meds Follow-up with nephrology as outpatient (4) CAD (coronary artery disease) Priority: Primary Status: Chronic Comments: Coronary artery disease, stable, no anginal symptoms Continue home dose of Lipitor Add Aspirin 81 mg Qualifiers: Coronary Disease-Associated Artery/Lesion type: wainwright artery [place] vs. transplanted heart: wainwright heart Associated angina: without angina Qualified Code(s): I25.10 - Atherosclerotic heart disease of [place]ainwright coronary artery without angina pectoris (5) Depression with anxiety Priority: Secondary Status: Chronic Comments: Chronic depression with anxiety, stable Continue home dose of Wellbutrin Advised to cut down on Xanax use (6) Chronic pain Priority: Secondary Status: Chronic Comments: Chronic pain - including chronic back pain Continue Cymbalta, Neurontin Stop Zanaflex Qualifiers: Chronic pain type: other chronic postprocedural pain Qualified Code(s): G89.28 - Other chronic postprocedural pain (7) HTN (hypertension) Priority: Primary Status: Chronic Comments: Essential hypertension, controlled, monitor closely Continue home dose of Verapamil, Cozaar Monitor renal function with Cozaar use Patient has probable CKD stage 3 Qualifiers: Hypertension type: essential hypertension Qualified Code(s): I10 - Essential (primary) hypertension (8) HLD (hyperlipidemia) Priority: Primary Status: Chronic Comments: Continue home dose of Lipitor, TriCor Qualifiers: Hyperlipidemia type: pure hypercholesterolemia Qualified Code(s): E78.00 - Pure hypercholesterolemia, unspecified; E78.0 - Pure hypercholesterolemia Hospital course: Ms. Kim is a 58 year old female with past medical history of hyperlipidemia , hypertension, osteoporosis, osteoarthritis, chronic pain, depression and anxiety. Patient presented to the ED with syncopal episode and fall. Patient reported waking her right cheek. No previous history of syncope. Patient stated that she has chronic pain, and had taken OTC Aleve. Patient also takes Neurontin and Xanax at home. Unclear if patient has taken extra doses of this medication. CT scan of the brain is negative for acute intracranial abnormality. Initial EKG revealed sinus bradycardia. Patient was on cardiac telemetry. She is in sinus rhythm and heart rate is greater than 70. Syncopal episode and fall is likely due to combination of Neurontin, Xanax and Zanaflex use. Patient has been advised to stop taking Zanaflex. She has been advised to cut down on Xanax and Neurontin use. Prescriptions with the newly adjusted dosage have been provided to the patient. Patient also has probable chronic kidney disease, and her creatinine was higher than baseline on admission. Patient was admitted for syncope, JAGRUTI on CKD and GI bleed. Patient had a positive fecal Hemoccult. H&H has been stable throughout her stay in the hospital. Patient was started on IV fluids, restarted all her home medications. Renal function now seems to be back to baseline state. Patient was evaluated by GI. She underwent colonoscopy. Patient was found to have diverticulosis of the sigmoid and also had 2 polyps which were resected. No active bleeding. GI has recommended outpatient follow-up and repeat colonoscopy in about 3 years. Patient is now back to baseline state. Examined this morning. Awake and alert. Not in any distress. Sitting up comfortably. Tolerating oral diet well and ambulating. Denies chest pain or shortness of breath. No fever. Hemodynamically stable. No other acute complaints. Patient did not have any other acute events or complications during her stay in the hospital. Patient's labs and vitals are all within baseline limits. Patient states she feels better, wants to go home today. She refuses home health services or short-term SNF placement. Advised to continue all home medications as per discharge instructions. Patient and her family have been explained about her condition upon in detail. They understood and agreed. No unanswered questions. Advised to return if symptoms worsen. Follow up with primary care physician. Patient states she will also follow up with a painting supervisor. Stable for discharge home today. Time spent discussing smoking cessation with patient: 3 to 10 minutes - Time Spent with Patient Total time spent providing and/or coordinating discharge services: Less than 30 minutes - Discharge Medications Prescriptions: ALPRAZolam [Xanax 0.5 MG Tablet] 0.5 mg PO DAILY PRN 7 Days #7 tablet PRN Reason: Anxiety Aspirin 81 mg PO DAILY #30 tab.chew Gabapentin [Neurontin] 300 mg PO TID PRN #30 capsule PRN Reason: Pain Nicotine Patch [Nicoderm] 14 mg TD Q24H #30 patch.td24 Home Medications: Atorvastatin [Lipitor] 10 mg PO HS 03/07/18 [History] BuPROPion [Wellbutrin] 100 mg PO DAILY 03/07/18 [History] DULoxetine [Cymbalta] 20 mg PO DAILY 03/07/18 [History] Fenofibrate Nanocrystallized [Triglide] 160 mg PO DAILY 03/07/18 [History] Losartan Potassium [Cozaar] 50 mg PO DAILY 03/07/18 [History] Ranitidine HCl [Acid Onion Tier] 150 mg PO BID 03/07/18 [History] Verapamil [Isoptin] 120 mg PO DAILY 03/07/18 [History] ALPRAZolam [Xanax 0.5 MG Tablet] 0.5 mg PO DAILY PRN 7 Days #7 tablet 03/09/18 [ Rx] Aspirin 81 mg PO DAILY #30 tab.chew 03/09/18 [Rx] Gabapentin [Neurontin] 300 mg PO TID PRN #30 capsule 03/09/18 [Rx] Nicotine Patch [Nicoderm] 14 mg TD Q24H #30 patch.td24 03/09/18 [Rx] Allergies/Adverse Reactions: 3 Allergy/AdvReac Type Severity Reaction Status Date / Time MAYRA Inhibitors Allergy Cough Verified 12/05/16 09:17 ezetimibe [From Zetia] Allergy See Verified 12/05/16 09:17 Comments lamotrigine [From Lamictal] Allergy Rash Verified 12/05/16 09:17 lisinopril Allergy See Verified 12/05/16 09:17 Comments metoprolol Allergy Irritable Verified 12/05/16 09:17 pravastatin Allergy See Verified 12/05/16 09:17 Comments topiramate [From Topamax] Allergy See Verified 12/05/16 09:17 Comments Date of admission: 03/07/18 16:45 Primary care physician: Judy Gill CNP Consults: 03/07/18 18:41 Consult to Gastroenterology [CONS] Routine Consulting Provider: [facility] [place] Reason for Consult: Positive hemoccult. Hgb of 10.5. Pt. had syncopal episode this morning, possibly d/t dehydration. GFR 25, creatinine 2.39. Nephrology consulted. Call Completed: Yes 03/07/18 18:52 Consult to Occupational Therapy [CONS] Routine Comment: Evaluate, develop and implement POC Reason for Consult: Pt. reports syncopal episodes. Please assess patient for ambulation safety, strength, stability, and possible home assistive/rehabilitation needs for post-discharge planning. Does patient have active BEDREST order?: No Is patient medically & hemodynamically stable?: Yes Patient assessed for mobility or mobilized this visit?: No Consult to [facility] [CONS] Routine Reason for SW Consult: Please assess patient for possible home needs for post -discharge planning. 03/07/18 18:54 Consult to Physical Therapy [CONS] Routine Comment: Evaluate, develop and implement POC Reason for Consult: Pt. reports syncopal episodes. Please assess patient for ambulation safety, strength, stability, and possible home assistive/rehabilitation needs for post-discharge planning. Does patient have active BEDREST order?: No Is patient medically & hemodynamically stable?: Yes Patient assessed for mobility or mobilized this visit?: No 03/07/18 18:56 Consult to Nephrology [CONS] Routine Consulting Provider: [facility]/BARRY/JUDIT/ERNST Reason for Consult: Patient admitted w/creatinine of 2.39 and GFR of 25. Hx of CKD, but these are her lowest numbers. Pt. given IV fluids @ [facility]. Will repeat Chem to see if there has been improvement. U/A suspicious for UTI so culture ordered. Call Completed: Yes Discharging clinician: Nils Jonas Anticipated date of discharge: 03/09/18 - Constitutional Vitals: Temp Pulse Resp BP Pulse Ox 99.0 F 78 19 135/64 98 03/09/18 07:07 03/09/18 07:07 03/09/18 07:07 03/09/18 07:07 03/09/18 07:07 General appearance: Present: cooperative, A&O X 3, pleasant, no acute distress, obese, answers questions appropriately Exam: Seems to be at baseline mental state. - Head Head exam: Present: normocephalic Additional comments: Mild abrasions on her right eye and right side of face. Present on admission. - Eye Eye exam: Present: EOMI, PERRL - ENT ENT exam: Present: mucous membranes moist - Neck Neck exam general surgery: Present: supple - Respiratory Respiratory exam: Present: CTAB - Cardiovascular Cardiovascular exam: Present: RRR, +S1, +S2 - GI/Abdominal GI/Abdominal exam: Present: soft, no peritoneal signs. Absent: distended, firm , guarding, tenderness - Extremities Exam Extremities exam: Present: pedal edema (Mild bilateral). Absent: calf tenderness, tenderness - Neurological Exam Neurological exam: Present: alert, CN II-XII intact, oriented X3, no focal deficits. Absent: facial droop, speech deficit - Psychiatric Psychiatric exam: Present: normal affect, normal mood - Patient Status Disposition: Home, Self-Care Condition: Good Functional capacity at discharge: independent ambulation Overall status at discharge: patient is back to baseline - Discharge Instructions Instructions: Syncope (DC), Chronic Hypertension (DC) Follow Up With: Judy Gill CNP [Primary Care Provider] - (Web Request sent03/09/18) Esmer Sotelo MD [Partnered Physician] - Veronica Coreas MD [Partnered Physician] - - Diet and Activity Activity: increase activity as tolerated, resume usual activities as tolerated Diet: other (Cardiac diet) - VTE Documentation of Mechanical Device: Intermittent pneumatic compression device
[2018-03-12 03:45] LABS: Urine Collection Duration RANDOM hr; Urine Collection Volume RANDOM mL
[2018-03-12 07:10] LABS: ANA IgG by ELISA NONE DETECTED (None Detected)
[2018-03-12 11:23] LABS: Complement Component 3 120 mg/dL (88-201)
[2018-03-12 11:24] LABS: Complement Component 4 21 mg/dL (10-40)
[2018-03-12 13:40] LABS: Alpha 2 Globulin (PEP) 0.49 g/dL (0.48-1.05); Beta Globulin (PEP) 0.59 g/dL (0.48-1.10)
[2018-03-12 14:22] LABS: IFE Reflexed NOT DONE
== END 2018-03-09 13:03 | disposition home or self-care (01) ==
LOC: 2ANU
PROVIDERS: ADMIT Internal Medicine; ATTEND Internal Medicine